=== PATIENT | female | born 1995 | race Caucasian/White ===

== ENCOUNTER 2017-01-12 13:09 | Emergency (ER) | payer OTHER ==
[2017-01-12 13:18] VITALS: BP 134/69; PULSE 113; RESP 20; TEMP 98.5; O2SAT 96
[2017-01-12] MEDS ORDERED: IBUP-232 PO (13:29)
[2017-01-12] MEDS ORDERED: ROBA750T PO (13:29)
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
== END 2017-01-12 13:59 | disposition home or self-care (01) ==
LOC: PHEFT 13:09
DX: S39.012A Strain of muscle, fascia and tendon of lower back, initial encounter (principal); M54.6 Pain in thoracic spine; V49.88XA Car occupant (driver) (passenger) injured in other specified transport accidents, initial encounter
CPT/HCPCS: 99283